=== PATIENT | male | born 1995 | race Caucasian/White ===

== ENCOUNTER 2020-10-24 20:22 | Emergency (ER) | payer OTHER, SELFPAY ==
[2020-10-23 14:34] VITALS: BMI 31.4
[2020-10-24 20:23] VITALS: BP 150/91; PULSE 100; RESP 16; TEMP 36.7; O2SAT 98; BMI 31.2
[2020-10-24] MEDS: Lidocaine 1% (20 ml mdv) 20 ML Vial INFILT (20:44)
--- NOTE | 2020-10-24 21:01 | ED.VISSUMM ---
- ER Visit Summary Date of Service: 10/24/20 Chief Complaint: Abscess History of Present Illness: The patient is a 25 M who presents with an abscess. He states that 4 days ago he noted pain in in his gluteal area. Is worse with sitting and touching. He went to an urgent care where they put him on doxycycline. He states the pain is getting worse. He has never had this before. No fevers. There is been no drainage. He has been trying ibuprofen without any relief. Physical Examination: Vital signs reviewed. Skin exam reveals an abscess in the gluteal cleft that measures 3 x 3 cm. It is tender to palpation. It is fluctuant. There is no purulent drainage. The rest of his exam is unremarkable Test Results: None performed Emergency Department Course and Treatment: And drainage was performed of this abscess. 2 cc of lidocaine was used to anesthetize the area. Cruciate incision was made over the dome of the abscess. There was significant purulence that returned. I did break up loculations with a curved hemostat. He felt improved after this. Patient appears to have a pilonidal abscess. He is already on doxycycline. He will continue this. I will give him surgical follow-up for this. He was also educated on doing sitz bath at home. Treatment Plan: [] Disposition: Discharge Impression: Pilonidal abscess Incision and drainage by ED physician This note was generated with [employer] dictation software. It may contain incorrect words, spelling, and punctuation that were not noted in review of the chart prior to signing ED Disposition - Plan for ED Patient: Disposition: Home or Assisted Living Instructions: ED Abscess Incision And Drainage Referrals: Ricco Tang DO [Primary Care Provider] - Alexandre Pérez MD [STAFF PHYSICIAN] -
[2020-10-24 21:27] VITALS: BP 142/67; PULSE 80; RESP 18; O2SAT 97
== END 2020-10-24 21:28 | disposition home or self-care (01) ==
LOC: ED 21:21
PROVIDERS: Emergency Provider Emergency Medicine
DX: L05.01 Pilonidal cyst with abscess (principal); F17.200 Nicotine dependence, unspecified, uncomplicated
CPT/HCPCS: 10080; 99283

== ENCOUNTER 2021-06-12 01:27 | Emergency (ER) | payer OTHER, SELFPAY ==
[2021-06-12 01:28] VITALS: BP 134/80; PULSE 86; RESP 16; TEMP 36.4; O2SAT 99; BMI 30.6
--- NOTE | 2021-06-12 01:53 | EX.ED.DYSGE1 ---
HPI History of Present Illness Chief Complaint: Other, Pain/Inj Informant: patient Narrative Narrative: Patient is a 26-year-old previously healthy male who presents to the emergency department for suspected abscess to his tailbone region. He states he does have a history of pilonidal cyst requiring drainage approximately 2 years ago. He states that he at the last time get out of control and it was much worse. This time his symptoms have improved over the past 2 days. Is tender whenever he sits on it. He has not noticed any large swelling. It is very tender to the touch. He denies any systemic symptoms including any fever/chills. [place] any change in bowel movements. No urinary symptoms. No nausea or vomiting. He has not tried anything for this. [facility] Medical History (Updated 06/12/21 @ 01:[address] Osvaldo Wiseman DO) partial omendectomy Home Medications doxycycline hyclate 100 mg PO BID 10 Days #20 cap 06/12/21 [Rx Last Taken Unknown] naproxen sodium [Aleve] 220 mg PO Q12H PRN 06/12/21 [History Last Taken 06/11/21 22:50] Allergy/AdvReac Type Severity Reaction Status Date / Time No Known Allergies Allergy Verified 10/24/20 20:24 Surgical History (Updated 10/23/20 @ 14:37 by Cassandra Alicea) History of appendectomy Social History Smoking Status: Current every day smoker tobacco type: cigarettes alcohol intake: never ROS ROS ED Constitutional Constitutional ED: Denies chills or fever(s) Eyes Eyes: Denies change in vision ENT ENT ED: Denies rhinorrhea Cardiovascular Cardiovascular: Denies chest pain Respiratory/Chest Respiratory/Chest: Denies cough, dyspnea or dyspnea on exertion Gastrointestinal Gastrointestinal: Denies abdominal pain, diarrhea, nausea or vomiting Genitourinary Genitourinary ED: Denies dysuria, hematuria or urinary frequency Musculoskeletal Musculoskeletal: Denies back pain or neck pain Integumentary Reports abscess; Denies rash Neurologic Neurologic: Denies dizziness, headache(s) or weakness EXAM Physical Exam Const Vital Signs: 06/12/21 01:28 Temperature 97.5 F L Temperature Source Temporal Pulse Rate 86 Respiratory Rate 16 Blood Pressure 134/80 H Blood Pressure Mean 98 Pulse Ox 99 Oxygen Delivery Method Room Air Positive well nourished and well developed General Appearance ED: well developed and NAD HEENT Reports normocephalic, head/scalp atraumatic and moist mucous membranes Eyes PERRL and EOMs intact bilaterally Neck supple Resp normal respiratory effort and clear to auscultation bilaterally Auscultation: Negative for rales, rhonchi or wheezes Cardio regular rate, regular rhythm and no murmurs GI normal to inspection, nondistended, normoactive bowel sounds and non-tender GI Narrative: Patient is very tender at the superior aspect of the buttocks. No overlying skin changes. I Do not appreciate any fluctuating abscess. Palpation: soft; Negative for guarding or rebound tenderness present Extremity normal to inspection General Extremety ED: Negative for edema or tenderness General Extremity: Negative for edema Neuro Sensorium / Orientation: alert Motor Exam: strength 5/5 throughout Psych mental status grossly normal Skin no rashes or lesions noted MDM MDM MDM Narrative Medical decision making narrative: Patient presents the ED for tenderness and suspected abscess over the tailbone. On examination he is tender but there is not any obvious source of cellulitis or fluctuating abscess. This could be the start of a repeat episode of pilonidal cyst. At this time there is no drainable collection. We will place him on doxycycline. I did make a general surgery referral. Return precautions are reviewed with him including developing any fever/chills, inability to keep down antibiotic or spreading of a rash. He understands and is agreeable to plan. Discharged home in stable condition. All questions were answered. Patient advised to use sitz bath's and he can take ibuprofen/Tylenol for symptomatic treatment. Discharge Plan Triage Chief Complaint: Other, Pain/Inj ED Provider: Osvaldo Wiseman Dx/Rx/DC Orders Clinical Impression: Abscess Instructions: ED Abscess Antibiotic Treatment Only Prescriptions: New doxycycline hyclate 100 mg capsule 100 mg PO BID 10 Days Qty: 20 RF: 0 No Action naproxen sodium [Aleve] 220 mg Capsule 220 mg PO Q12H PRN (Reason: Pain) RF: 0 Primary Care Provider: Care Physician,No Primary Referrals: Alexandre Pérez MD [STAFF PHYSICIAN] - 2 Days for wound check Care Physician,No Primary [Primary Care Provider] - Disposition Disposition: Home, Self Care
[2021-06-12] MEDS: Doxycycline 100 MG CAPSULE PO (01:57)
== END 2021-06-12 01:58 | disposition home or self-care (01) ==
LOC: ED 01:54
PROVIDERS: Emergency Provider Emergency Medicine
DX: L02.212 Cutaneous abscess of back [any part, except buttock and flank] (principal); F17.210 Nicotine dependence, cigarettes, uncomplicated
CPT/HCPCS: 99283

== ENCOUNTER 2021-06-16 07:43 | Emergency (ER) | payer OTHER, SELFPAY ==
[2021-06-13 12:40] VITALS: BMI 30.6
[2021-06-16 07:44] VITALS: BP 144/79; PULSE 91; RESP 16; TEMP 36.6; O2SAT 99; BMI 31.4
--- NOTE | 2021-06-16 08:42 | EX.ED.GENINJ ---
HPI History of Present Illness Chief Complaint: Other, Pain/Inj Narrative Narrative: 26-year-old male presenting with pilonidal cyst. Patient states that he was seen in the ED and was started on doxycycline. He did follow-up with Dr. Pérez as an outpatient and was told to see how he does on doxycycline. He does not report fever, chills, nausea, vomiting or any other systemic signs or symptoms. He does state that it hurts when he sits but he is reporting tolerable pain with standing. Patient states he has a history of pilonidal cyst a couple of years ago which was drained in the ED. He does not know if he has a history of MRSA. [facility] Medical History partial omendectomy Home Medications doxycycline hyclate 100 mg PO BID 10 Days #20 cap 06/12/21 [Rx Last Taken Unknown] hydrocodone-acetaminophen 1 tab PO Q4H PRN PRN 3 Days #12 tablet 06/16/21 [Rx Last Taken Unknown] Allergy/AdvReac Type Severity Reaction Status Date / Time No Known Allergies Allergy Verified 06/16/21 07:44 Surgical History History of appendectomy Social History Smoking Status: Current every day smoker tobacco type: cigarettes alcohol intake: current alcohol intake frequency: 0-2 drinks per day [facility] ED Constitutional Constitutional ED: Denies chills, fever(s) or sweats Eyes Eyes: Denies blurry vision or change in vision ENT ENT ED: Denies rhinorrhea or sore throat Cardiovascular Cardiovascular: Denies chest pain or palpitations Respiratory/Chest Respiratory/Chest: Denies cough or dyspnea Gastrointestinal Gastrointestinal: Denies abdominal pain, constipation, diarrhea, nausea or vomiting Genitourinary Genitourinary ED: Denies dysuria or hematuria Musculoskeletal Musculoskeletal: Denies arthralgias or myalgias Integumentary Reports other Details: Tenderness to palpation over the sacrum and coccyx. Neurologic Neurologic: Denies headache(s) or weakness Psychiatric Psychiatric: Denies anxiety or depression EXAM Physical Exam Const Vital Signs: 06/16/21 07:44 Temperature 97.8 F Temperature Source Temporal Pulse Rate 91 Respiratory Rate 16 Blood Pressure 144/79 H Blood Pressure Mean 100 Pulse Ox 99 Oxygen Delivery Method Room Air Positive well nourished General Appearance ED: NAD HEENT atraumatic; Negative for trauma Eyes PERRL and EOMs intact bilaterally Resp normal respiratory effort and clear to auscultation bilaterally Cardio regular rhythm Rate: regular rate GI normal to inspection, nondistended, normoactive bowel sounds Back/Spine normal to inspection and no thoracic nor lumbar tenderness Extremity normal to inspection and full ROM Neuro oriented x3 and CN's II-XII intact bilaterally Sensorium / Orientation: alert Psych mental status grossly normal Skin Skin Narrative: Small area of tenderness over the sacrum and coccyx. There is an old well-healed scar here. No drainage is noted. Mild fluctuance also noted. No cellulitic change. MDM MDM MDM Narrative Medical decision making narrative: Patient presenting with history of pilonidal cyst and some mild pain and swelling in the coccyx region. There is no palpable fluctuance. Patient states that his pain is bearable as long as he is not sitting. Patient followed up with Dr. Pérez a couple of days ago who wanted to see how the doxycycline helped. Patient was given instructions to come to the ER over the weekend and during the week if he is having any worsening symptoms to call the office. I did speak with Dr. Gli and reviewed the case with her. Since he is having tolerable pain and does not require an emergent incision and drainage she stated that he could follow-up in office. I will cover him with pain medication give him a work note for a couple of days that he can get in the office for incision and drainage as needed. We will keep him on doxycycline for now. Patient amenable to this plan. He is discharged in stable condition. Impression: 1. Early pilonidal cyst Discharge Plan Triage Chief Complaint: Other, Pain/Inj ED Provider: Gonzalo Cortes Dx/Rx/DC Orders Instructions: ED Cyst Pilonidal Infec Abx Only Prescriptions: New hydrocodone-acetaminophen 5-325 mg tablet 1 tab PO Q4H PRN PRN (Reason: Pain) 3 Days Qty: 12 RF: 0 No Action doxycycline hyclate 100 mg capsule 100 mg PO BID 10 Days Qty: 20 RF: 0 Stand Alone Forms: Work Status Form Primary Care Provider: Care Physician,No Primary Referrals: Alexandre Pérez MD [STAFF PHYSICIAN] - As soon as possible Care Physician,No Primary [Primary Care Provider] - Disposition Disposition: Home, Self Care
== END 2021-06-16 09:08 | disposition home or self-care (01) ==
PROVIDERS: Emergency Provider Student in an Organized Health Care Education/Training Program
DX: L05.91 Pilonidal cyst without abscess (principal); F17.210 Nicotine dependence, cigarettes, uncomplicated
CPT/HCPCS: 99282

== ENCOUNTER 2021-06-23 11:45 | Day surgery (SDC) | payer OTHER, SELFPAY ==
[2021-06-18 10:01] VITALS: BMI 31.4
[2021-06-23] VITALS (7 sets, daily range): BP systolic 107–124; BP diastolic 61–85; PULSE 47–59; RESP 16; TEMP 35.7–36.5; O2SAT 96–100
--- NOTE | 2021-06-23 11:59 | PCM.HP.BLA ---
History and Physical Date of Admission: 06/23/21 Intake Vital Signs 06/18/21 10:01 BMI 31.4 Intake Visit Reasons: 5 DAY F/U OV ER F/U 06/11 Pilonidal Cyst Chief Complaint: recheck pilonidal cyst Liner Replacer Required: No Is patient in pain?: Yes Allergies No Known Allergies Allergy (Verified 06/18/21 10:01) Medications hydrocodone-acetaminophen 1 tab PO Q4H PRN PRN 3 Days #12 tablet 06/16/21 [Rx Confirmed 06/18/21] amoxicillin 875 mg-potassium clavulanate 125 mg tablet 1 tab PO BID #14 tab 06/18/21 [Rx Confirmed 06/18/21] PFSH Medical History partial omendectomy Surgical History History of appendectomy Social History Smoking Status: Current every day smoker tobacco type: cigarettes alcohol intake: current alcohol intake frequency: 0-2 drinks per day HPI HPI HPI: TUNG WORLEY, is a 26 M who presents to the office today for pilonidal pain. The patient went back to the emergency room recently saying the pain got worse again. He is still having pain in the area with no drainage. ROS General General: No weight change, appetite, fatigue, colon cancer, breast cancer or weakness HEENT HEENT: No difficulty swallowing, eye injury, eye surgery, swollen glands or hoarseness Endo Endocrine: No thyroid disease, diabetes mellitus, thyroid cancer, Hair loss, heat intolerance or cold intolerance Skin Skin: No rash or changing moles Breast Breast: No left breast lump, right breast lump, nipple discharge, breast pain, abnormal mammogram, abnormal US or breast enlargement Musc Musculoskeletal: No back problems, arthritis, rheumatoid arthritis, gout or joint pain Cardio Cardiovascular: No murmur, pacemaker, heart disease, atrial fibrillation, high blood pressure, heart attack, heart stent, palpitations, shortness of breat with exertion or chest pain Psych Psychiatric: Yes depression and anxiety; No hearing voices Resp Respiratory: No shortness of breath, No sleep apnea, No cough, No COPD, No asthma, No emphysema and No wheezing Gastro Gastrointestinal: No abdominal pain, No nausea or vomiting, No diarrhea, No constipation, No blood in stool, No acid reflux, No hemorrhoids, No ulcers, No gallbladder problem and No black,tarry stools Hemant Hematologic: No blood thinners, No blood disorders, No bleeding, No anemia and No blood clots Neuro Neurologic: No system reviewed and no additional complaints, except as documented, No as per HPI, No abnormal gait, No abnormal hearing, No abnormal movements, No abnormal speech, No behavioral changes, No burning sensations, No confusion, No convulsions, No disequilibrium, No dizziness, No localized weakness, No frequent falls, No headache(s), No lack of coordination, No loss of vision, No memory loss, No numbness, No other visual disturbances, No radicular pain, No restless legs, No sensory deficit, No syncope, No tingling, No tremor(s), No weakness and No other Exam Const General: cooperative Orientation: alert and oriented x3 HENMT Head: normal to inspection Neck Neck: normal visual inspection and full ROM Chest Chest palpation & inspection: normal inspection of the chest Resp Effort & Inspection: normal respiratory effort Auscultation: clear to auscultation bilaterally Cardio Rate: regular rate Rhythm: regular rhythm GI Inspection: non-distended Palpation: soft and nontender Skin General: no rashes or lesions noted Neuro General: patient alert and patient oriented x3 Extrem General: full ROM Psych Appearance: grossly normal Mental Status: mental status grossly normal Assessment and Plan Assessment and Plan (1) Pilonidal cyst: Status: Acute Plan - Dr. Alexandre Pérez MD: The patient has a persistent pilonidal cyst which is causing him pain. I will switch his antibiotic to Augmentin and plan for pilonidal cyst excision next week. I discussed the risks of the procedure including bleeding and infection and dehiscence of the wound. Patient understands the risks and is when to proceed. Alexandre Pérez MD Pager: [facility] [address] [place] [address], [address] [place] [address] Office: I have re-examined the patient. There are no clinical changes since date of exam.
[2021-06-23] MEDS: Lactated Ringers 1,000 ML 100 ML IV (12:18)
--- NOTE | 2021-06-23 13:30 | NASAL_PTH ---
PATIENT: TUNG WORLEY [place] [facility] [facility] [place][id number] AGE/SX: 26/M ROOM: RE06/23/[address]: Dr. Alexandre Pérez MD : 1995 BED: DIS: 06/23/2021 SPEC #: [id number] RECD: 06/24/21 07:08 STATUS: MIMA PAUL #: [id number] AGUILA: 06/23/21 13:[address]: Alexandre Pérez DEPT: SURGICAL PATHOLOGY RECD BY: Sharlene Prabhakar ENTERED: 06/24/21 12:57 SP TYPE: NASAL SPEC OTHR DR: No Primary Care Phys Tissues: PILONIDAL TISSUE Procedures: Surgery Specimen Level III HEADER OPERATION: Excision pilonidal cyst PRE-OP DIAGNOSIS: Pilonidal cyst TISSUE SUBMITTED: Pilonidal sinus tract MICROSCOPIC DIAGNOSIS Pilonidal sinus tract, excision: Consistent with pilonidal sinus tract, inflamed. AM:cesario 06/25/2021 MICROSCOPIC DESCRIPTION Slides are reviewed. GROSS DESCRIPTION Received in fixative is one container labeled with the patient's name and designated pilonidal sinus tract. The specimen consists of six fragments of pink-nash soft tissue measuring in aggregate 5 x 4 x 0.5 cm. The specimen is totally submitted in two cassettes as follows: 1 ? smaller fragments, 2 ? largest fragment, serially sectioned. / AM:cesario 06/24/21 TC:2 CPT: 46426
[2021-06-23] MEDS: Cefotetan 2 GM in 0.9% NS 100 ML IV (14:15)
[2021-06-23] MEDS: Bupivacaine Mpf 0.5% 30 ML VIAL (14:18)
--- NOTE | 2021-06-23 14:37 | PCM.OPRPT ---
Problems Associated Problem List Diagnoses (1) Pilonidal cyst: Report of Operation Date of Procedure: 06/23/21 Pre-Operative Diagnosis: Pilonidal cyst Post-Operative Diagnosis: Pilonidal cyst Surgery/Procedure Performed:: Pilonidal cyst excision Specimen's removed: Pilonidal sinus tract Description of Procedure: Patient was brought back to the operating room and general anesthesia was induced. The patient was turned into a prone jackknife position. The area of the pilonidal cyst was prepped and draped in usual sterile fashion. An incision was marked elliptically around this area and injected with local anesthetic. Incision was made a scalpel and deepened to the cyst cavity. The cavity was followed superiorly until the edge of the cyst was encountered. The cyst was removed circumferentially until clean fat was encountered using electrocautery. Electrocautery was then used to maintain hemostasis. The cavity was irrigated and suctioned dry and hemostasis was once again ensured. The deep tissue was closed with 3-0 Vicryl suture. The skin was closed with interrupted 3-0 silk suture. There is good approximation of the tissue with minimal tension. Bandages were applied and the patient was awoken and taken to PACU in stable condition. Admit VTE Documentation VTE Mechan Device Prophylaxis: SCD's
--- NOTE | 2021-06-23 14:40 | EX.PCM.DISCH ---
Discharge Instructions Procedure Narrative: Pilonidal cystectomy Diet Discharge Diet: Light diet - advance as tolerated Activity Discharge Activity: May Shower Lifting Restrictions: 20 lbs for 2 weeks Additional Activity Instructions:: lay flat as much as possible and sit on soft surfaces. Dressing / Incision Call your doctor if your incision/area has: Continuous Slow Oozing, Sudden Increased Bleeding, Increased Pain/ Swelling, Increased Redness, Foul Smelling Discharge and Swelling at the incision site Call your doctor if you observe: Fever of 101 or Higher Change Dressing in: 1 day (change dressing daily and more often if needed.) Cleanse incision/area with: Soap & Water Follow Up Care Please Follow Up With: Alexandre Pérez MD When: Please call to schedule 2 week follow up appointment. [phone] Test Results: Test results from this visit will be discussed in further detail at your follow-up appointment, if applicable. Discharge Plan Admission Attending Provider: Alexandre Pérez Primary Care Provider: Care Physician,No Primary Discharge Orders/Prescriptions Prescriptions: New oxycodone-acetaminophen [Endocet] 5-325 mg tablet 1 tab PO Q6H PRN (Reason: pain) 5 Days Qty: 30 RF: 0 Discontinued amoxicillin-pot clavulanate [Augmentin] 875-125 mg tablet 1 tab PO BID Qty: 14 RF: 0 hydrocodone-acetaminophen 5-325 mg tablet 1 tab PO Q4H PRN PRN (Reason: Pain) 3 Days Qty: 12 RF: 0 Referrals / Follow Up: Care Physician,No Primary [Primary Care Provider] - Disposition Disposition (needs filled in before D/C Order can be placed): Home, Self Care
== END 2021-06-23 16:23 | disposition home or self-care (01) ==
LOC: SDC 11:45 → AC 11:49
PROVIDERS: Referring Provider Surgery; Visit Provider Surgery
PROC: (CPT 11771; principal; 2021-06-23 13:15)
DX: L05.91 Pilonidal cyst without abscess (principal); F17.210 Nicotine dependence, cigarettes, uncomplicated; K21.9 Gastro-esophageal reflux disease without esophagitis
CPT/HCPCS: 00300; 11771; 87426; 88304; C9803; J7120; J2405